=== PATIENT | male | born 1980 | race Caucasian/White ===

== ENCOUNTER 2017-08-12 00:32 | Emergency (ER) | payer SELFPAY ==
[~2017-08-12] VITALS: Ht 177.8 cm; Wt 77.0 kg
[2017-08-12 00:46] VITALS: BP 123/76
== END 2017-08-12 05:26 | disposition left against medical advice (07) ==
LOC: ER 00:46
DX: Z53.21 Procedure and treatment not carried out due to patient leaving prior to being seen by health care provider (principal)